=== PATIENT | female | born 1950 | race Caucasian/White ===

== ENCOUNTER 2019-09-09 16:15 | Inpatient (IN) ==
[2019-09-09] MEDS ORDERED: Naloxone 0.4 MG/ML INJ IVP PRN ×2 (20:34→20:58)
[2019-09-09] MEDS ORDERED: D5% in Water 1,000 ML IVC PRN (21:23)
[2019-09-09] MEDS ORDERED: Dextrose Gel 15 GM/37.5 ML TUBE PO PRN ×2 (21:23)
[2019-09-09] MEDS ORDERED: *HR* Dextrose 50 % in Water (Syg) 50 ML SYRINGE IVP PRN (21:23)
[2019-09-09] MEDS ORDERED: Morphine Sulfate 2 MG/ML SYRINGE IVP PRN (21:28)
[2019-09-09] MEDS: amLODIPine 5 MG TABLET PO SCH (22:42)
[2019-09-09] MEDS ORDERED: Ondansetron 4 MG/2 ML VIAL IVP PRN (23:19)
[2019-09-10] MEDS: Insulin LISPRO 300 UNITS/3 ML VIAL SQ SCH ×5 (00:15→23:45)
[2019-09-10] MEDS: 0.9 % Sodium Chloride 1,000 ML IVC SCH ×2 (00:25→18:56)
[2019-09-10 01:24] LABS: Hemoglobin 13.8 g/dL (11.5-15.4); Mean Corpuscular HGB Conc 32.1 g/dL (31.6-35.5); Mean Corpuscular Hemoglobin 30.2 pg (28.0-33.3); Mean Corpuscular Volume 94.1 fL (83.0-100.0); Mean Platelet Volume 9.3 fL (9.4-12.4); Platelet Count 230 K/mcL (140-400); Red Blood Count 4.57 M/mcL (3.82-4.97); Red Cell Distribution Width 13.2 % (11.5-14.5); White Blood Count 10.7 K/mcL (4.3-11.1)
[2019-09-10 01:29] LABS: INR 2.4; Prothrombin Time 27.1 Seconds (9.4-12.1)
[2019-09-10 01:53] LABS: BUN/Creatinine Ratio 17 (6-26); Blood Urea Nitrogen 11 mg/dL (8-23); Calcium 9.2 mg/dL (8.6-10.3); Carbon Dioxide 26 mEq/L (23-29); Chloride 103 mEq/L (98-107); Glucose 130 mg/dL (70-105); Osmolality,Calculated 285 (280-300); Potassium 3.9 mEq/L (3.5-5.1); Sodium 137 mEq/L (136-145); eGFR For African Americans > 60 (> 60); eGFR For Non-African Americans > 60 (> 60)
[2019-09-10 01:54] LABS: Magnesium 1.1 mg/dL (1.6-2.6); Phosphorous 3.5 mg/dL (2.7-4.5)
[2019-09-10] MEDS: Gabapentin 300 MG CAPSULE PO SCH ×3 (08:36→22:00)
[2019-09-10] MEDS ORDERED: *HR* Phytonadione 10 MG/ML AMPUL SQ ONE (08:40)
[2019-09-10] MEDS ORDERED: hydroCHLOROthiazide 25 MG TABLET PO SCH (09:00)
[2019-09-10] MEDS ORDERED: Magnesium Oxide 400 MG TABLET PO SCH (09:00)
[2019-09-10] MEDS ORDERED: lisinopriL 20 MG TABLET PO SCH ×2 (09:00→21:45)
[2019-09-10] MEDS ORDERED: Metoprolol XL (24 HR) Succ 50 MG TAB.ER.24H PO SCH (09:00)
[2019-09-10] MEDS: amLODIPine 5 MG TABLET PO SCH (09:48)
[2019-09-10] MEDS ORDERED: 0.9 % Sodium Chloride 500 ML ONE (10:44)
[2019-09-10] MEDS ORDERED: *HR* Labetalol 20 MG/4 ML SYRINGE IVP PRN ×2 (11:13→21:18)
[2019-09-10 11:16] LABS: INR 2.3; Prothrombin Time 26.3 Seconds (9.4-12.1)
[2019-09-10] MEDS ORDERED: *HR* FentaNYL (PF) 100 MCG/2 ML VIAL ONE ×2 (13:58→18:13)
[2019-09-10] MEDS ORDERED: Ondansetron 4 MG/2 ML VIAL IVP ONE ×2 (13:58→21:18)
[2019-09-10] MEDS ORDERED: *HR* Promethazine 25 MG/ML VIAL IVP PRN ×2 (13:58→21:18)
[2019-09-10] MEDS ORDERED: *HR* OxyCODONE Immed Rel 5 MG TABLET PO PRN (13:58)
[2019-09-10] MEDS ORDERED: *HR* Propofol 200 MG/20 ML VIAL IVP ONE (13:58)
[2019-09-10] MEDS ORDERED: *HR* Rocuronium Bromide 50 MG/5 ML VIAL ONE (14:00)
[2019-09-10] MEDS ORDERED: Lidocaine -MPF 2% 2 ML VIAL ONE (14:00)
[2019-09-10] MEDS ORDERED: *HR* Succinylcholine 200 MG/10 ML VIAL IVP ONE (18:22)
[2019-09-10] MEDS ORDERED: Ondansetron 4 MG/2 ML VIAL ONE (18:48)
[2019-09-10] MEDS ORDERED: Dexamethasone 4 MG/ML VIAL ONE (18:48)
[2019-09-10] MEDS: *HR* HYDROmorphone PF 0.5 MG/0.5 ML SYRINGE IVP PRN ×2 (19:35→20:08)
[2019-09-10] MEDS ORDERED: Ringers Solution, Lactated 1,000 ML ONE (19:37)
[2019-09-10] MEDS ORDERED: Acetaminophen IV 1,000 MG/100 ML INFUS..BTL IVPB ONE (20:17)
[2019-09-10] MEDS ORDERED: 0.9 % Sodium Chloride 1,000 ML IVC SCH (21:18)
[2019-09-10] MEDS ORDERED: *HR* HYDROmorphone PF 0.5 MG/0.5 ML SYRINGE IVP PRN (21:18)
[2019-09-10] MEDS ORDERED: D5% in Water 1,000 ML IVC PRN (21:18)
[2019-09-10] MEDS ORDERED: Naloxone 0.4 MG/ML INJ IVP PRN (21:18)
[2019-09-10] MEDS ORDERED: Ondansetron 4 MG/2 ML VIAL IVP PRN (21:18)
[2019-09-10] MEDS ORDERED: Dextrose Gel 15 GM/37.5 ML TUBE PO PRN ×2 (21:18)
[2019-09-10] MEDS ORDERED: *HR* Dextrose 50 % in Water (Syg) 50 ML SYRINGE IVP PRN (21:18)
[2019-09-11 02:03] LABS: Basophils % 0.1 %; Hematocrit 38.5 % (35.3-44.9); Immature Granulocytes % 0.5 % (0-4); Lymphocytes # 0.5 K/mcL (0.6-4.6); Lymphocytes % 3.5 %; Mean Corpuscular HGB Conc 31.2 g/dL (31.6-35.5); Mean Corpuscular Hemoglobin 29.4 pg (28.0-33.3); Mean Corpuscular Volume 94.4 fL (83.0-100.0); Mean Platelet Volume 9.7 fL (9.4-12.4); Monocytes # 1.4 K/mcL (0.0-1.3); Monocytes % 9.2 %; Neutrophils # 12.8 K/mcL (1.6-8.9); Platelet Count 220 K/mcL (140-400); Red Blood Count 4.08 M/mcL (3.82-4.97); Red Cell Distribution Width 13.2 % (11.5-14.5); Segmented Neutrophils % 86.7 %; White Blood Count 14.7 K/mcL (4.3-11.1)
[2019-09-11 02:06] LABS: INR 1.9; Prothrombin Time 22.1 Seconds (9.4-12.1)
[2019-09-11 02:19] LABS: BUN/Creatinine Ratio 13 (6-26); Blood Urea Nitrogen 11 mg/dL (8-23); Calcium 8.8 mg/dL (8.6-10.3); Carbon Dioxide 27 mEq/L (23-29); Chloride 101 mEq/L (98-107); Glucose 191 mg/dL (70-105); Magnesium 1.4 mg/dL (1.6-2.6); Osmolality,Calculated 285 (280-300); Sodium 135 mEq/L (136-145); eGFR For African Americans > 60 (> 60); eGFR For Non-African Americans > 60 (> 60)
[2019-09-11] MEDS: Insulin LISPRO 300 UNITS/3 ML VIAL SQ SCH ×3 (05:19→21:37)
[2019-09-11] MEDS ORDERED: Gabapentin 300 MG CAPSULE PO SCH (09:00)
[2019-09-11] MEDS ORDERED: lisinopriL 20 MG TABLET PO SCH (09:00)
[2019-09-11] MEDS ORDERED: hydroCHLOROthiazide 25 MG TABLET PO SCH (09:00)
[2019-09-11] MEDS: Magnesium Oxide 400 MG TABLET PO SCH (09:19)
[2019-09-11] MEDS: Gabapentin 300 MG CAPSULE PO SCH ×3 (09:19→21:38)
[2019-09-12 05:05] LABS: Basophils % 0.3 %; Eosinophils # 0.1 K/mcL (0.0-0.6); Hematocrit 36.9 % (35.3-44.9); Hemoglobin 11.4 g/dL (11.5-15.4); Immature Granulocytes % 0.8 % (0-4); Lymphocytes # 1.1 K/mcL (0.6-4.6); Lymphocytes % 9.8 %; Mean Corpuscular HGB Conc 30.9 g/dL (31.6-35.5); Mean Corpuscular Hemoglobin 29.3 pg (28.0-33.3); Mean Corpuscular Volume 94.9 fL (83.0-100.0); Mean Platelet Volume 9.7 fL (9.4-12.4); Monocytes # 1.3 K/mcL (0.0-1.3); Monocytes % 11.2 %; Neutrophils # 8.8 K/mcL (1.6-8.9); Platelet Count 219 K/mcL (140-400); Red Blood Count 3.89 M/mcL (3.82-4.97); Red Cell Distribution Width 13.4 % (11.5-14.5); Segmented Neutrophils % 76.9 %; White Blood Count 11.5 K/mcL (4.3-11.1)
[2019-09-12 05:17] LABS: Calcium 8.8 mg/dL (8.6-10.3); INR 1.4; Potassium 4.1 mEq/L (3.5-5.1); Prothrombin Time 15.5 Seconds (9.4-12.1)
[2019-09-12] MEDS ORDERED: 0.9 % Sodium Chloride 1,000 ML IVC SCH (07:45)
[2019-09-12] MEDS: Insulin LISPRO 300 UNITS/3 ML VIAL SQ SCH ×4 (08:00→22:08)
[2019-09-12] MEDS: Gabapentin 300 MG CAPSULE PO SCH ×3 (09:03→22:09)
[2019-09-12] MEDS: Magnesium Oxide 400 MG TABLET PO SCH (09:15)
[2019-09-12] MEDS ORDERED: Warfarin perPT PO PRN (18:00)
[2019-09-12] MEDS ORDERED: *HR* HYDROcodone/Acet 5/325 mg TABLET PO ONE (23:20)
[2019-09-13] MEDS ORDERED: *HR* HYDROcodone/Acet 5/325 mg TABLET PO ONE (02:09)
[2019-09-13 05:45] LABS: Basophils % 0.2 %; Eosinophils # 0.2 K/mcL (0.0-0.6); Eosinophils % 1.9 %; Hematocrit 35.6 % (35.3-44.9); Hemoglobin 11.1 g/dL (11.5-15.4); INR 1.3; Immature Granulocytes % 0.5 % (0-4); Lymphocytes # 1.3 K/mcL (0.6-4.6); Lymphocytes % 12.9 %; Mean Corpuscular HGB Conc 31.2 g/dL (31.6-35.5); Mean Corpuscular Hemoglobin 29.6 pg (28.0-33.3); Mean Corpuscular Volume 94.9 fL (83.0-100.0); Mean Platelet Volume 9.7 fL (9.4-12.4); Monocytes # 1.3 K/mcL (0.0-1.3); Monocytes % 12.8 %; Neutrophils # 7.3 K/mcL (1.6-8.9); Platelet Count 219 K/mcL (140-400); Prothrombin Time 14.9 Seconds (9.4-12.1); Red Blood Count 3.75 M/mcL (3.82-4.97); Segmented Neutrophils % 71.7 %; White Blood Count 10.2 K/mcL (4.3-11.1)
[2019-09-13 05:58] LABS: BUN/Creatinine Ratio 31 (6-26); Blood Urea Nitrogen 27 mg/dL (8-23); Calcium 8.7 mg/dL (8.6-10.3); Carbon Dioxide 29 mEq/L (23-29); Chloride 96 mEq/L (98-107); Glucose 229 mg/dL (70-105); Osmolality,Calculated 282 (280-300); Potassium 4.1 mEq/L (3.5-5.1); Sodium 130 mEq/L (136-145); eGFR For African Americans > 60 (> 60); eGFR For Non-African Americans > 60 (> 60)
[2019-09-13] MEDS: Insulin LISPRO 300 UNITS/3 ML VIAL SQ SCH ×4 (08:04→21:57)
[2019-09-13] MEDS: Magnesium Oxide 400 MG TABLET PO SCH (08:57)
[2019-09-13] MEDS: Metoprolol XL (24 HR) Succ 50 MG TAB.ER.24H PO SCH (08:57)
[2019-09-13] MEDS: Gabapentin 300 MG CAPSULE PO SCH ×3 (08:57→21:57)
[2019-09-13] MEDS ORDERED: *HR* HYDROcodone/Acet 5/325 mg TABLET PO PRN (12:20)
[2019-09-13] MEDS: Acetaminophen 325 MG TABLET PO PRN ×2 (12:28→21:56)
[2019-09-13] MEDS ORDERED: *HR* Warfarin 7.5 MG TABLET PO ONE (18:00)
[2019-09-13] MEDS: Insulin DETEMIR 100 UNIT/ML X5UNITS SQ SCH (21:57)
[2019-09-14 03:59] LABS: INR 1.2; Prothrombin Time 13.3 Seconds (9.4-12.1)
[2019-09-14 04:01] LABS: Hematocrit 35.8 % (35.3-44.9); Hemoglobin 11.4 g/dL (11.5-15.4); Mean Corpuscular HGB Conc 31.8 g/dL (31.6-35.5); Mean Corpuscular Hemoglobin 29.8 pg (28.0-33.3); Mean Corpuscular Volume 93.5 fL (83.0-100.0); Mean Platelet Volume 9.9 fL (9.4-12.4); Platelet Count 260 K/mcL (140-400); Red Blood Count 3.83 M/mcL (3.82-4.97); White Blood Count 8.9 K/mcL (4.3-11.1)
[2019-09-14 04:17] LABS: BUN/Creatinine Ratio 38 (6-26); Blood Urea Nitrogen 23 mg/dL (8-23); Calcium 9.4 mg/dL (8.6-10.3); Carbon Dioxide 27 mEq/L (23-29); Chloride 98 mEq/L (98-107); Glucose 154 mg/dL (70-105); Osmolality,Calculated 279 (280-300); Potassium 4.4 mEq/L (3.5-5.1); Sodium 131 mEq/L (136-145); eGFR For African Americans > 60 (> 60); eGFR For Non-African Americans > 60 (> 60)
[2019-09-14] MEDS: Metoprolol XL (24 HR) Succ 50 MG TAB.ER.24H PO SCH (08:58)
[2019-09-14] MEDS: Magnesium Oxide 400 MG TABLET PO SCH (08:59)
[2019-09-14] MEDS: Gabapentin 300 MG CAPSULE PO SCH ×3 (08:59→21:55)
[2019-09-14] MEDS: Insulin LISPRO 300 UNITS/3 ML VIAL SQ SCH ×4 (09:00→21:42)
[2019-09-14] MEDS ORDERED: *HR* Warfarin 7.5 MG TABLET PO ONE (18:00)
[2019-09-14] MEDS: Insulin DETEMIR 100 UNIT/ML X5UNITS SQ SCH (21:55)
[2019-09-14] MEDS: Acetaminophen 325 MG TABLET PO PRN (22:09)
[2019-09-15 02:17] LABS: INR 1.3; Prothrombin Time 14.7 Seconds (9.4-12.1)
[2019-09-15] MEDS: Gabapentin 300 MG CAPSULE PO SCH ×3 (08:51→21:17)
[2019-09-15] MEDS: Metoprolol XL (24 HR) Succ 50 MG TAB.ER.24H PO SCH (08:51)
[2019-09-15] MEDS: Insulin LISPRO 300 UNITS/3 ML VIAL SQ SCH ×4 (08:51→21:19)
[2019-09-15] MEDS: Magnesium Oxide 400 MG TABLET PO SCH (08:51)
[2019-09-15] MEDS: amLODIPine 5 MG TABLET PO SCH (08:52)
[2019-09-15] MEDS ORDERED: *HR* Warfarin 7.5 MG TABLET PO ONE (18:00)
[2019-09-15] MEDS: Insulin DETEMIR 100 UNIT/ML X5UNITS SQ SCH (21:18)
[2019-09-15] MEDS: Acetaminophen 325 MG TABLET PO PRN (21:19)
[2019-09-16 04:16] LABS: INR 1.6; Prothrombin Time 18.1 Seconds (9.4-12.1)
[2019-09-16 07:38] VITALS: BP 145/68
[2019-09-16] MEDS: Insulin LISPRO 300 UNITS/3 ML VIAL SQ SCH (09:35)
[2019-09-16] MEDS: Metoprolol XL (24 HR) Succ 50 MG TAB.ER.24H PO SCH (09:36)
[2019-09-16] MEDS: Gabapentin 300 MG CAPSULE PO SCH (09:36)
[2019-09-16] MEDS: Magnesium Oxide 400 MG TABLET PO SCH (09:36)
[2019-09-16] MEDS: amLODIPine 5 MG TABLET PO SCH (09:36)
[2019-09-16] MEDS ORDERED: *HR* Warfarin 7.5 MG TABLET PO ONE (18:00)
== END 2019-09-16 12:07 | DRG 354 ==
LOC: 3ANU → SUATTDRO 19:33
PROVIDERS: ADMIT Internal Medicine; ATTEND Internal Medicine